=== PATIENT | female | born 2000 | race Caucasian/White ===

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

== ENCOUNTER 2021-10-05 12:20 | Outpatient (REF) | payer OTHER, SELFPAY | END 2021-10-05 12:21 | disposition home or self-care (01) | LOC: HO.MANLDS 12:20 | PROVIDERS: Visit Provider Physician Assistant | DX: Z00.00 Encounter for general adult medical examination without abnormal findings (principal) | CPT/HCPCS: 36415; 86481 ==

== ENCOUNTER 2023-07-06 13:35 | Outpatient (REF) | payer OTHER, SELFPAY ==
[2023-07-06 17:51] LABS: MANUAL DIFF FLAG NO
[2023-07-06 18:18] LABS: Basophils Absolute Auto 0.1 X10*3/uL (0.0-0.2); Basophils Percent Auto 0.5 % (0-2); Eosinophils Absolute Auto 0.1 X10*3/uL (0.0-0.4); Eosinophils Percent Auto 0.6 % (0-4); Hematocrit 38.9 % (37.0-47.0); Imm Gran Abs Auto 0.02 X10*3/uL (0.00-0.03); Imm Gran Pct Auto 0.2 % (0.0-0.4); Lymphocytes Absolute Auto 2.7 X10*3/uL (1.2-4.9); Lymphocytes Percent Auto 28.1 % (20-40); Mean Corpuscular HGB Conc 33.4 g/dl (31.0-35.0); Mean Corpuscular Hemoglobin 28.8 pg (27.0-33.0); Mean Corpuscular Volume 86.1 fL (80.0-98.0); Mean Platelet Volume 10.2 fL (9.4-12.3); Monocytes Absolute Auto 0.5 X10*3/uL (0.1-1.2); Monocytes Percent Auto 5.4 % (2-11); Neutrophils Absolute Auto 6.4 x10*3/uL (2.0-8.3); Neutrophils Percent Auto 65.2 % (45-73); Platelet Count 338 X10*3/uL (160-400); Red Blood Count 4.52 X10*6/uL (4.20-5.50); Red Cell Distribution Width 11.9 % (11.0-16.0); White Blood Count 9.8 X10*3/uL (4.8-10.8)
[2023-07-06 18:32] LABS: Alanine Aminotransferase 10 U/L (0-31); Albumin Level 4.2 g/dL (3.5-5.0); Alkaline Phosphatase 47 U/L (39-117); Anion Gap 11 (12-20); Aspartate Amino Transferase 16 U/L (5-31); Bilirubin Total 0.6 mg/dL (0.0-1.0); Blood Urea Nitrogen 15 mg/dL (9-16); Calcium 9.4 mg/dL (8.4-10.2); Carbon Dioxide 25 mmol/L (22-29); Chloride 107 mmol/L (96-108); Estimated Glomerular Filt Rate > 60; Glucose Random 80 mg/dL (60-115); Iron 154 mcg/dL (30-160); Percent Iron Saturation 48 % (15-50); Potassium 3.8 mmol/L (3.3-5.1); Sodium 139 mmol/L (135-145); Total Iron Binding Capacity 320 mcg/dL (228-428); Unsaturated Iron Binding 166 ug/dL
[2023-07-06 18:47] LABS: Ferritin 29 ng/mL (10-122); Thyroid Stimulating Hormone 0.78 uIU/mL (0.32-4.0)
== END 2023-07-06 13:36 | disposition home or self-care (01) ==
LOC: HO.MANLDS 13:35
PROVIDERS: Visit Provider Physician Assistant
DX: Z00.00 Encounter for general adult medical examination without abnormal findings (principal)
CPT/HCPCS: 36415; 80053; 82728; 83540; 84439; 84443; 85025

== ENCOUNTER 2023-11-02 08:17 | Outpatient (REF) | payer BC, SELFPAY ==
[2023-11-04 21:18] LABS: Lyme Abs Screen <0.90 index
[2023-11-12 09:08] LABS: A. Phagocytophilum Ab IgG <1:64 (<1:64); A. Phagocytophilum Ab IgM <1:20 (<1:20); E. Chaffeensis Ab IgG <1:64 (<1:64); E. Chaffeensis Ab IgM <1:20 (<1:20)
== END 2023-11-02 08:18 | disposition home or self-care (01) ==
LOC: HO.MANLDS 08:17
PROVIDERS: Visit Provider Physician Assistant
DX: T14.8XXA Other injury of unspecified body region, initial encounter (principal); W57.XXXA Bitten or stung by nonvenomous insect and other nonvenomous arthropods, initial encounter
CPT/HCPCS: 36415; 86617; 86618; 86666

== ENCOUNTER 2024-06-15 13:54 | Outpatient (REF) | payer BC, SELFPAY ==
--- OUTSIDE RECORDS SUMMARY | 2024-06-15 13:56 | XMS_ITS | Continuity of Care Document ---
Author Organization [facility], [facility] Address [address] [place] [address] Assessment No assessment recorded. Plan of Treatment Reminders Order Date Submit Date Provider Last Modified By Organization Details Last Modified Time Details Appointments ANNUAL EXAM 2024 01:30P ANGELA BEY Not available Not available Not available ANNUAL EXAM 2025 09:00A M ANGELA BATISTA Not available Not available Not available Lab CMP, serum or plasma 2024 025 [facility], [address] [place] [address], [id number], 06/15/2024 13:46:29 CBC w/ auto diff 2024 025 [facility], [address] [place] [address], [id number], 06/15/2024 13:46:29 vitamin D, 25-hydro xy, total, serum 2024 025 [facility], [address] [place] [address], [id number], 06/15/2024 13:46:29 TSH + free T4, serum 2024 025 [facility], [address] [place] [address], [id number], 06/15/2024 13:46:29 iron + TIBC + ferritin , serum 2024 025 [facility], [address], [place], [id number], 06/15/2024 13:46:29 Referral None recorded . Procedures None recorded . Surgeries None recorded . Imaging None recorded . Medication Orders dextroam phetamin e-amphet amine 10 mg tablet 2024 025 [id number], [address] [place], [address], 06/15/2024 13:37:47 Patient TargetsNo targets recorded. Patient InstructionsNo instructions recorded. Reason for Referral None Reported. 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 ANGELA BATISTA [address] [place], [address], [facility] 1 16:28:38 Cellulit is of skin 903672889 Active 2021 ANGELA BATISTA [address] [place], [address], [facility] 2 15:10:04 Jellaubreyfis h sting Active 2021 ANGELA BATISTA [address] [place], [address], [facility] 2 15:11:12 Low back pain 395935091 Active 2021 ANGELA BATISTA [address] [place], [address], [facility] 2 12:14:42 Bilatera l hip joint pain 05968848143 559006 Active 2021 ANGELA BATISTA [address] [place], [address], [facility] 2 12:15:07 Inguinal pain 090134200 Active 2022 ANGELA BATISTA [address] [place], [address], [facility] 3 12:22:25 Acute conjunct ivitis 20223345 Active 2022 ANGELA BATISTA [address] [place], [address], [facility] 3 14:04:49 Lyme disease 00354882 Active 2023 ANGELA BATISTA [address] [place], [address], [facility] 4 14:12:42 Problem Notes None recorded. Medical Equipment None Reported. Allergies No known drug allergies Medications Name Sig Start Date Stop Date Status Note LastModified by Organization Details LastModified Time Apri 0.15 mg-0.03 mg tablet TAKE 1 TABLET BY MOUTH EVERY DAY active Not Available Not Available No t Available dextroamp hetamine- amphetami ne 10 mg tablet Take 1 tablet every day by oral route for 30 days. 2024 active Not Available Not Available Not Avai lable Tubersol 5 tub. unit/0.1 mL intraderm al injection solution Inject 0.1 mL by intrader mal route. 12/30 completed Not Available Not Available Not Available cephalexi n 500 mg capsule Take 1 capsule every 6 hours by oral route for 5 days. 05/12 completed Not Available Not Available Not Available erythromy camilla 5 mg/gram (0.5 %) eye ointment APPLY 1 CM RIBBON INTO THE LOWER CONJUNCT IVAL SAC(S) IN THE AFFECTED EYE(S) BY OPHTHALM IC ROUTE 3 TIMES PER DAY 06/08 /2024 completed Not Available Not Available Not Available Nexplanon active just recieved in in august 2020 Not Available Not Available Not Available Vitals Date Recorded Body height Body mass index (BMI) Body weight Heart rate Oxygen saturation Oxygen saturation in Arterial blood by Pulse oximetry Systolic blood pressure Diastolic blood pressure Provider Name and Address Organization Details Last Updated DateTime 5 162.56 cm 22.1 kg/m2 30582.7 g 73 /min 99 % 99 % 104 mm[Hg] 72 mm[Hg] Ann-Marie Servando [facility] 13:28:12 Social History Question Answer Notes LastModified by Organizat ion Details LastModified Time Tobacco Smoking Status Never Smoker Chastity diaz [facility] 11/07/2020 09:01:28 What Is Your Level Of Alcohol Consumption? Occasional Information not available 11/07/2020 What Is Your Level Of Caffeine Consumption? Occasional Information not available 11/07/2020 What Was The Date Of Your Most Recent Tobacco Screening? 06/15/2024 [email or web address] Information not available 06/15/2024 Do You Or Have You Ever Used Any Other Forms Of Tobacco Or Nicotine? No [email or web address] Information not available 06/08/2023 Sex: Unknown Functional Status None recorded. Mental Status None recorded. Family History Relationship Description Onset Age of this Age Resolved Age Notes LastModified by Organization Details LastModified Time Paternal Grandfather Diabetes mellitus [email or web address] Not available 2020 09:07:03 Maternal Aunt Malignant tumor of breast [email or web address] Not available 2024 13:22:43 Father No current problems or disability [email or web address] Not available 06/15 13:22:43 Mother No current problems or disability [email or web address] Not available 06/15 13:22:43 Maternal Grandmother Arthritis [email or web address] Not available 0 11/07/2020 10:59:20 Medical History No medical history recorded. Gynecological HistoryNo gynecological history recorded. Obstetrics History GPAL:G 0 P 0 0 0 0 Immunizations Vaccine Type Date Status Note Provider Nam e and Address Organization Details Recorded Time COVID-19, mRNA, LNP-S, PF, 100 mcg/0.5mL dose or 50 mcg/0.25mL dose 1 completed Naheed Gencarelle null, [facility] 06/08/2023 13:23:53 COVID-19, mRNA, LNP-S, PF, 100 mcg/0.5mL dose or 50 mcg/0.25mL dose 1 completed Naheed Gencarelle null, [facility] 06/08/2023 13:23:53 COVID-19, mRNA, LNP-S, PF, 30 mcg/0.3 mL dose 1 completed Naheed Gencarelle null, [facility] 06/08/2023 13:23:53 Tdap 3 completed Sylvia [place] null, [facility] 10/02/2021 09:20:34 Influenza, split virus, quadrivalent, preservative 0 completed Naheed Gencarelle null, [facility] 06/08/2023 13:23:53 Hep B, unspecified formulation 2 completed Naheed Gencarelle null, [facility] 06/08/2023 13:23:53 Hep B, unspecified formulation 2 completed Naheed Gencarelle null, [facility] 06/08/2023 13:23:53 Hep B, unspecified formulation 3 completed Naheed Gencarelle null, [facility] 06/08/2023 13:23:53 DTaP 2 completed Sylvia [place] null, [facility] 10/02/2021 09:29:24 DTaP 2 completed Sylvia [place] null, [facility] 10/02/2021 09:29:31 DTaP 2 completed Sylvia [place] null, [facility] 10/02/2021 09:29:38 DTaP 3 completed Sylvia [place] null, [facility] 10/02/2021 09:29:46 DTaP 6 completed Sylvia [place] null, [facility] 10/02/2021 09:29:55 Hib, unspecified formulation 2 completed Naheed Gencarelle null, [facility] 06/08/2023 13:23:53 Hib, unspecified formulation 2 completed Naheed [place] null, [facility] 06/08/2023 13:23:53 Hib, unspecified formulation 2 completed Naheed Genc[place]le null, [facility] 06/08/2023 13:23:53 Hib, unspecified formulation 3 completed Naheed Genc[place]le null, [facility] 06/08/2023 13:23:53 polio, unspecified formulation 2 completed Naheed Genc[place]le null, [facility] 06/08/2023 13:23:53 polio, unspecified formulation 2 completed Naheed Genc[place]le null, [facility] 06/08/2023 13:23:53 polio, unspecified formulation 3 completed Naheed Gencarelle null, [facility] 06/08/2023 13:23:53 polio, unspecified formulation 6 completed Naheed Gencarelle null, [facility] 06/08/2023 13:23:53 MMR 3 completed Sylvia Jasso null, [facility] 10/02/2021 09:32:25 MMR 7 completed Sylvia [place] null, [facility] 10/02/2021 09:32:35 Hep A, unspecified formulation 8 completed Naheed Gencarelle null, [facility] 06/08/2023 13:23:53 Hep A, unspecified formulation 9 completed Naheed Gencarelle null, [facility] 06/08/2023 13:23:53 HPV, unspecified formulation 5 completed Naheed Gencarelle null, [facility] 06/08/2023 13:23:53 HPV, unspecified formulation 5 completed Naheed Gencarelle null, [facility] 06/08/2023 13:23:53 HPV, unspecified formulation 6 completed Naheed Gencarelle null, [facility] 06/08/2023 13:23:53 varicella 3 completed Sylvia Jasso null, [facility] 10/02/2021 09:34:59 varicella 7 completed Sylvia Jasso null, [facility] 10/02/2021 09:35:16 COVID-19, mRNA, LNP-S, PF, 30 mcg/0.3 mL dose 2 completed Naheed Gencarelle joe, [facility] 06/08/2023 13:23:53 Tdap 3 completed ANGELA BATISTA [address] [place] [address], [phone], [facility] 06/08/2023 13:39:51 Past Encounters Encounter ID Performer Location Encounter Start Date Encounter Closed Date Diagnosis/Indication Diagnosis SNOMED-CT Code Diagnosis ICD10 Code Diagnosis Note [id number] ANGELA BATISTA [facility] [address],[place] [address] 06/15/2024 13:22:17 06/15/2024 13:50:41 Active or passive immunization 263273034 Z23 up to date, in system Adult [facility] examination 055160854 Z00.00 BP excellenth ealthy young adult women vitals excellent Depression screening 171 642414 Z13.31 SCREENING NEGATIVE Undifferen tiated attention deficit disorder 20370496 F90.8 change out to [employer]EV[employer] brand only Health Concerns Section Related Observation LastModified by Organization Detai ls LastModified Time None Recorded Concern Status LastModified by Organization Details LastModified Time None Recorded Payers Encounter Date Sequence Insurance Name Policy Number Policy Graham Covered Member ID Graham Member ID Guarantor Name 06/15/2024 1 [facility] [id number] Lani krishna [id number] Yulissa Carney Notes Date Note Type Note Provider Name a nd Address Organization Details Recorded Time 5 text/html Annual WellnessReported bypatient.Diet and Nutrition:healthy diet; discussed vitamin and supplement use; discussed portion control; discussed maintaining calcium balance; discussed diet improvement Fracture Risk:no history of fractures; no recent explained fracture; no sudden unexplained fractures; no previous musculoskeletal injuries Physical Activity:exercises on a regular basis; recent increase in physical activity; good physical condition Additional Lifestyle Factors:no tobacco use; drinks alcohol (mild-moderate) Depression Risk:never feels sad, empty, or tearful; no loss of interest in activities; no significant changes in weight; no sleep disturbances or insomnia; no agitation; no loss of energy; no feelings of worthlessness or guilt; no thoughts of suicide; no history of depression; no history of mood disorders Hearing:no loss of hearing Vision:no vision problemsNotes:routine dentist appts ANGELA BATISTA [address] [place] [address], [phone], [facility] 06/15/2024 13:50:40 OBGyn Episode No OBEpisode recorded.
--- OUTSIDE RECORDS SUMMARY | 2024-06-15 13:57 | XMS_ITS | Data Portability ---
Author Organization [facility] Home Service Address [address] [facility] [place] [address] Assessment No assessment recorded. Plan of Treatment Reminders Order Date Submit Date Provider Last Modified By Organization Details Last Modified Time Details Appointments ANNUAL EXAM 2024 01:30P ANGELA BEY Not available Not available Not available ANNUAL EXAM 2025 09:00A M ANGELA BATISTA Not available Not available Not available Lab CMP, serum or plasma 2024 025 [facility], [address] [place] [address], [id number], 06/15/2024 13:46:29 CBC w/ auto diff 2024 025 [facility], [address] [place] [address], [id number], 06/15/2024 13:46:29 vitamin D, 25-hydrox y, total, serum 2024 025 [facility], [address] [place] [address], [id number], 06/15/2024 13:46:29 TSH + free T4, serum 2024 025 [facility], [address] [place] [address], [address], 06/15/2024 13:46:29 iron + TIBC + ferritin, serum 2024 025 [facility], [address] [place] [address], [place], [address], 06/15/2024 13:46:29 CMP, serum or plasma 2023 024 [facility], [address] [place] [address], [address], 07/07/2023 11:28:24 CBC w/ auto diff 2023 024 [facility], [address] [place] [address], [id number], 07/07/2023 11:28:25 TSH + free T4, serum 2023 024 [facility], [address] [place] [address], [address], 07/07/2023 11:28:24 iron + TIBC + ferritin, serum 2023 024 [facility], [address] [place] [address], [address], 07/07/2023 11:28:25 PPD (purified protein derivativ e), skin test 2021 022 [email or web address] [facility], [address], [address], [place], [address], 10/14/2021 14:58:03 Referral orthopedi c surgeon referral 2022 023 [facility], [address] [facility], [place], [address], 05/19/2022 08:26:00 Procedures None recorded. Surgeries None recorded. Imaging None recorded. Medication Orders dextroamp hetamine- amphetami ne [address] tablet [address] [facility]Pharmacy #2025, [address], [place], [address], 06/15/2024 13:37:47 dextroamp hetamine- amphetami ne 10 mg tablet 2022 023 [email or web address] [facility]/Pharmacy #5, [address] [place], [address], 05/14/2022 16:58:28 cephalexi n 500 mg capsule 2021 023 KYLE [facility]/Pharmacy #5, [address] [place], [address], 05/12/2022 08:31:26 prednison e 10 mg tablet 2021 023 [id number] [id number] [facility]/Pharmacy #5, [address] [place], [address], 05/13/2022 09:32:22 Patient TargetsNo targets recorded. Patient InstructionsNo instructions recorded. Reason for Referral Orthopedic Surgeon Referral for Bilateral hip joint pain possible groin pull or strain or hip strain Referring Physician: Maia Chavez, Internal Medicine, Encounter Date: 05/12/2022 Results Created Date Observation Date Name Description Value Unit Range Abnormal Flag Note LastModifiedBy Organization Detail LastModifiedTime 10/15/19 22 10/14/2021 PPD (eze fied prote in deriv ative ), skin test TB negati ve Not Available [facility] [address], [place], [address], 10/14/2021 14:41:42 04/21/20 22 04/21/2022 XR, lumba r spine , 2 view No observ ation record ed. [facility] [address] [place], [address], 04/21/2022 11:50:43 04/21/20 22 04/21/2022 XR, hip + pelvi s, bilat eral, 2 view No observ ation record ed. [facility] [address] [place], [address], 04/21/2022 11:50:44 Result Notes None recorded. 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 ANGELA BATISTA [address] [place] [address], [address], [facility] 1 16:28:38 Cellulit is of skin 566454115 Active 2021 ANGELA BATISTA [address] [place] [address], [address], [facility] 2 15:10:04 Jellaubreyfis h sting Active 2021 ANGELA BATISTA [address] [place] [address], [address], [facility] 2 15:11:12 Low back pain 416929733 Active 2021 ANGELA BATISTA [address] [place] [address], [address], [facility] 2 12:14:42 Bilatera l hip joint pain 34847498665 400490 Active 2021 ANGELA BATISTA [address] [place] [address], [address], [facility] 2 12:15:07 Inguinal pain 388147960 Active 2022 ANGELA BATISTA [address] [place] [address], [address], [facility] 3 12:22:25 Acute conjunct ivitis 50573638 Active 2022 ANGELA BATISTA [address] [place], [address], [facility] 3 14:04:49 Lyme disease 92400638 Active 2023 ANGELA BATISTA [address] [place], [address], [facility] 4 14:12:42 Problem Notes None recorded. Procedures Surgical History None recorded. Imaging Results Imaging Date Name Status LastModified by Organiz ation Details LastModified Time 04/21/2022 XR, lumbar spine, 2 view completed [facility] [address], [address], 04/21/2022 11:50:43 04/21/2022 XR, hip + pelvis, bilateral, 2 view completed [facility] [address], [address], 04/21/2022 11:50:44 Procedure Notes None recorded. Medical Equipment None Reported. [...] IC ROUTE 3 TIMES PER DAY 06/08 completed Not Available Not Available Not Available Nexplanon active just recieved in in august 2020 Not Available Not Available Not Available Vitals Date Recorded Body height Body mass index (BMI) Percentile per age and sex Body mass index (BMI) Body weight Heart rate Oxygen saturation Oxygen saturation in Arterial blood by Pulse oximetry Systolic blood pressure Diastolic blood pressure Provider Name and Address Organization Details Last Updated DateTime 2 162.56 cm 33 % 20.4 kg/m2 83475.0 6 g 62 /min 100 % 100 % 94 mm[Hg] 60 mm[Hg] Shereen Crouch [facility] 2 14:53:34 Date Recorded Body height Provider Name an d Address Organization Details Last Updated DateTime 05/12/2022 162.56 cm Sylvia Jasso [facility] 05/12/2022 11:43:40 Date Recorded Body height Body mass index (BMI) Body weight Heart rate Oxygen saturation Oxygen saturation in Arterial blood by Pulse oximetry Systolic blood pressure Diastolic blood pressure Provider Name and Address Organization Details Last Updated DateTime 4 162.56 cm 20.9 kg/m2 78066.2 7 g 72 /min 99 % 99 % 112 mm[Hg] 68 mm[Hg] Syeda Whaley [facility] 4 13:28:43 Date Recorded Body height Body mass index (BMI) Body weight Heart rate Oxygen saturation Oxygen saturation in Arterial blood by Pulse oximetry Systolic blood pressure Diastolic blood pressure Provider Name and Address Organization Details Last Updated DateTime 5 162.56 cm 22.1 kg/m2 91732.7 g 73 /min 99 % 99 % 104 mm[Hg] 72 mm[Hg] Ann-Marie Al [facility] 5 13:28:12 Social History Question Answer Notes LastModified by Organizat ion Details LastModified Time Tobacco Smoking Status Never Smoker Chastity diaz [facility] 11/07/2020 09:01:28 What Is Your Level Of Alcohol Consumption? Occasional Information not available 11/07/2020 What Is Your Level Of Caffeine Consumption? Occasional Information not available 11/07/2020 What Was The Date Of Your Most Recent Tobacco Screening? 06/15/2024 [email or web address] Information not available 06/15/2024 Do You Or Have You Ever Used Any Other Forms Of Tobacco Or Nicotine? No [email or web address] Information not available 06/08/2023 Sex: Unknown Functional [...] 50 mcg/0.25mL dose 1 completed Naheed Gencarelle joe [facility] 06/08/2023 13:23:53 COVID-19, mRNA, LNP-S, PF, 100 mcg/0.5mL dose or 50 mcg/0.25mL dose 1 completed Naheed Gencarelle joe [facility] Internal [facility] 06/08/2023 13:23:53 COVID-19, mRNA, LNP-S, PF, 30 mcg/0.3 mL dose 1 completed Naheed Gencarelle joe [facility] 06/08/2023 13:23:53 [facility] 3 [facility] 09:20:34 Influenza, split virus, quadrivalent, preservative 0 completed Naheed Gencarelle null, [facility] 06/08/2023 13:23:53 Hep B, unspecified formulation 2 completed Naheed Gencarelle null, [facility] 06/08/2023 13:23:53 Hep B, unspecified formulation 2 completed Naheed Gencarelle null, [facility] 06/08/2023 13:23:53 Hep B, unspecified formulation 3 completed Naheed Gencarelle null, [facility] 06/08/2023 13:23:53 DTaP 2 completed Sylvia Gambrills null, [facility] 10/02/2021 09:29:24 DTaP 2 completed Sylvia Gambrills null, [facility] 10/02/2021 09:29:31 DTaP 2 completed Sylvia Gambrills null, [facility] 10/02/2021 09:29:38 DTaP 3 completed Sylvia Gambrills null, [facility] 10/02/2021 09:29:46 DTaP 6 completed Sylvia Gambrills null, [facility] 10/02/2021 09:29:55 Hib, unspecified formulation 2 completed Naheed Gencarelle null, [facility] 06/08/2023 13:23:53 Hib, unspecified formulation 2 completed Naheed Gencarelle null, [facility] 06/08/2023 13:23:53 Hib, unspecified formulation 2 completed Naheed Gencarelle null, [facility] 06/08/2023 13:23:53 Hib, unspecified formulation 3 completed Naheed Gencarelle null, [facility] 06/08/2023 13:23:53 polio, unspecified formulation 2 completed Naheed Gencarelle null, [facility] 06/08/2023 13:23:53 polio, unspecified formulation 2 completed Naheed Gencarelle null, [facility] 06/08/2023 13:23:53 polio, unspecified formulation 3 completed Naheed Gencarelle null, [facility] 06/08/2023 13:23:53 polio, unspecified formulation 6 completed Naheed Gencarelle null, [facility] 06/08/2023 13:23:53 MMR 3 completed Sylvia Jasso null, [facility] 10/02/2021 09:32:25 MMR 7 completed Sylvia Hebertinner null, [facility] 10/02/2021 09:32:35 Hep A, unspecified formulation 8 completed Naheed Gencarelle null, [facility] 06/08/2023 13:23:53 Hep A, unspecified formulation 9 completed Naheed Gencarelle null, [facility] 06/08/2023 13:23:53 HPV, unspecified formulation 5 completed Naheed Gencarelle null, [facility] 06/08/2023 13:23:53 HPV, unspecified formulation 5 completed Naheed Gencarelle null, [facility] 06/08/2023 13:23:53 HPV, unspecified formulation 6 completed Naheed Gencarelle null, [facility] 06/08/2023 13:23:53 varicella 3 completed Sylvia Jasso null, [facility] 10/02/2021 09:34:59 varicella 7 completed Sylvia Jasso null, [facility] 10/02/2021 09:35:16 COVID-19, mRNA, LNP-S, PF, 30 mcg/0.3 mL dose 2 completed Naheed Gencarelle null, [facility] 06/08/2023 13:23:53 Tdap 3 completed ANGELA BATISTA [address] [place], [address], [facility] 06/08/2023 13:39:51 Past Encounters Encounter ID Performer Location Encounter Start Date Encounter Closed Date Diagnosis/Indication Diagnosis SNOMED-CT Code Diagnosis ICD10 Code Diagnosis Note [id number] ANGELA BATISTA [facility] [address] [facility] [address] 11/07/2020 08:47:58 11/07/2020 14:37:17 Attention deficit hyperactivity disorder 244353426 F90.9 will set up with testing Adult [facility] examination 893429952 Z00.00 BP excellenth ealt young adult women [id number] ANGELA BATISTA [facility] [address] [facility] [address] 05/05/2021 08:52:01 05/06/2021 13:54:44 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 [id number] ANGELA BATISTA [facility] [address] [facility] [address] 10/05/2021 11:40:06 10/06/2021 09:22:09 Active or passive immunization 755431401 Z23 up to date, in system Adult [facility] examination 512665137 Z00.00 BP excellenth ealthy young adult women vitals excellent [id number] Jl [facility] [address] [facility] [address] 10/12/2021 14:17:01 10/12/2021 14:38:39 Tuberculosis screening 266815301 Z11.1 [id number] Jl [facility] [address] [facility] [address] 10/14/2021 14:35:59 10/14/2021 15:51:51 Tuberculosis screening 357959642 Z11.1 [id number] ANGELA BATISTA [facility] [address] [facility] [address] 12/30/2021 14:41:19 12/30/2021 15:14:58 Cellulitis of skin 987933832 L03.818 will fu with preventati ve abx Jellyfish sting 35335770 2 T63.624A will start on prednisone [id number] ANGELA BATISTA [facility] [address] [facility] [address] [address] 05/12/2022 11:41:25 05/12/2022 15:04:39 Bilateral hip joint pain 8942971290 4085988 M25.552 will set up with ortho for evaluation for NEOS Undifferen tiated attention deficit disorder 17788519 F90.8 will resend adderral script [id number] AN[facility]A [facility] [address],[place] [address] 06/08/2023 13:23:41 06/10/2023 16:14:46 Adult health examination 316368303 Z00.00 BP excellenth ealt young adult women vitals excellent [id number] ANGELA [facility]ISTA [facility] [address] [facility] [address] [address] 06/15/2024 13:22:17 06/15/2024 13:50:41 Active or passive immunization 930482132 Z23 up to date, in system Adult heal th examination 700868623 Z00.00 BP excellenth ealthy young adult women vitals excellent Depression screening 171 249003 Z13.31 SCREENING NEGATIVE Undifferen tiated attention deficit disorder 49994456 F90.8 change out to [employer] brand only Health Concerns Section Related Observation LastModified by Organization Detai ls LastModified Time None Recorded Concern Status LastModified by Organization Details LastModified Time None Recorded Advance Directives Directive None Recorded Payers Encounter Date Sequence Insurance Name Policy Number Policy Graham Covered Member ID Graham Member ID Guarantor Name 10/14/2021 1 [facility] [id number] Yulissa Carney [id number] Yulissa Carney 12/30/2021 1 [facility] [id number] Yulissa Carney [id number] Yulissa Carney 05/12/2022 1 [facility] [id number] Yulissa Carney [id number] Yulissa Carney 06/08/2023 1 [facility] [id number] Yulissa Carney [id number] Yulissa Carney 06/15/2024 1 [facility] [place] [id number] Lani lucas [id number] Yulissa Carney Notes Date Note Type Note Provider Name a nd Address Organization Details Recorded Time 2 text/html c/o jellyfish sting the patient was stung by a [facility]fish [facility] start preventive abx, steroidsusing cool compresses and starting aloe vera lotion as wellcan continue cortizone 10 if she would like for break out itching ANGELA BATISTA [address] [place], [address], [facility] 12/30/2021 15:18:21 3 text/html f/u imaging imaging was normalgen surg consult was unremarkable for reasons for pain discussed eval by ortho for a possible groin painagreedwill send referral ANGELA BATISTA [address] [place], [address], [facility] 05/14/2022 16:58:41 4 text/html Annual WellnessReported bypatient.Diet and Nutrition:healthy diet; discussed vitamin and supplement use; discussed portion control; discussed maintaining calcium balance; discussed diet improvement Fracture Risk:no history of fractures; no recent explained fracture; no sudden unexplained fractures; no previous musculoskeletal injuries Physical Activity:exercises on a regular basis; recent increase in physical activity; good physical condition; discussed weightbearing activities; discussed exercise habits Additional Lifestyle Factors:no tobacco use; drinks alcohol (mild-moderate) Hearing:no loss of hearing Vision:no vision problemsNotes:last dentist appt was november, next is june ANGELA BATISTA [address] [place], [address], [facility] 06/08/2023 13:42:42 5 text/html Annual WellnessReported bypatient.Diet and Nutrition:healthy [...] Vision:no vision problemsNotes:routine dentist appts ANGELA BATISTA [address] [place] [address], [address], [facility] 06/15/2024 13:50:40 OBGyn Episode No OBEpisode recorded.
[2024-06-15 17:53] LABS: MANUAL DIFF FLAG NO
[2024-06-15 17:56] LABS: Basophils Percent Auto 0.6 % (0-2); Eosinophils Absolute Auto 0.1 X10*3/uL (0.0-0.4); Eosinophils Percent Auto 1.4 % (0-4); Hematocrit 37.9 % (37.0-47.0); Hemoglobin 12.9 g/dl (12.0-16.0); Imm Gran Abs Auto 0.01 X10*3/uL (0.00-0.03); Imm Gran Pct Auto 0.1 % (0.0-0.4); Lymphocytes Absolute Auto 2.6 X10*3/uL (1.2-4.9); Mean Corpuscular Hemoglobin 29.7 pg (27.0-33.0); Mean Corpuscular Volume 87.1 fL (80.0-98.0); Mean Platelet Volume 10.3 fL (9.4-12.3); Monocytes Absolute Auto 0.5 X10*3/uL (0.1-1.2); Monocytes Percent Auto 6.4 % (2-11); Neutrophils Percent Auto 55.5 % (45-73); Platelet Count 318 X10*3/uL (160-400); Red Blood Count 4.35 X10*6/uL (4.20-5.50); Red Cell Distribution Width 12.1 % (11.0-16.0); White Blood Count 7.1 X10*3/uL (4.8-10.8)
[2024-06-15 18:16] LABS: Alanine Aminotransferase 17 U/L (0-31); Albumin Level 4.5 g/dL (3.5-5.0); Alkaline Phosphatase 47 U/L (39-117); Anion Gap 9 (12-20); Aspartate Amino Transferase 27 U/L (5-31); Bilirubin Total 0.6 mg/dL (0.0-1.0); Blood Urea Nitrogen 11 mg/dL (9-16); Calcium 9.2 mg/dL (8.4-10.2); Carbon Dioxide 24 mmol/L (22-29); Chloride 107 mmol/L (96-108); Estimated Glomerular Filt Rate > 60; Glucose Random 106 mg/dL (60-115); Iron 112 mcg/dL (30-160); Percent Iron Saturation 36 % (15-50); Potassium 3.3 mmol/L (3.3-5.1); Sodium 137 mmol/L (135-145); Total Iron Binding Capacity 312 mcg/dL (228-428); Total Protein 7.5 g/dL (6.5-8.0); Unsaturated Iron Binding 200 ug/dL
[2024-06-15 18:30] LABS: Ferritin 21 ng/mL (10-122); T4 Thyroxine 7.2 ug/dL (4.5-12.0); Thyroid Stimulating Hormone 0.96 uIU/mL (0.32-4.0)
== END 2024-06-15 13:55 | disposition home or self-care (01) ==
LOC: HO.MANLDS 13:54
PROVIDERS: Visit Provider Internal Medicine
DX: Z00.00 Encounter for general adult medical examination without abnormal findings (principal)
CPT/HCPCS: 36415; 80053; 82728; 83540; 84436; 84443; 85025